=== PATIENT | male | born 1985 | race Caucasian/White ===

== ENCOUNTER 2017-06-07 17:58 | Emergency (ER) | payer OTHER ==
[2017-06-07] MEDS ORDERED: Sodium Chloride 0.9% 1,000 ML IV ONE ×2 (18:10→20:25)
[2017-06-07 18:12] VITALS: O2SAT 100
[2017-06-07 18:19] LABS: BASO # 0.1 K/uL (0.0-0.2); BASO % 0.8 % (0.0-2.0); EOS % 0.1 % (0.0-4.0); MEAN CORPUSCULAR HEMOGLOBIN 28.8 pg (27.0-31.0); MEAN CORPUSCULAR HGB CONC 33.9 g/dL (33.0-37.0); MEAN PLATELET VOLUME 7.7 fL (7.2-11.7); MONO # 0.7 K/uL (0.0-0.8); MONO % 6.3 % (0.0-10.0); NRBC % 0.1 % (0.0-2.0); RED CELL DISTRIBUTION WIDTH 13.7 % (11.5-14.5); WHITE BLOOD COUNT 11.7 K/uL (4.8-10.8)
[2017-06-07 18:29] LABS: CHLORIDE 94 mmol/L (98-107); SODIUM 140 mmol/L (132-148)
[2017-06-07 18:30] LABS: POTASSIUM 3.2 mmol/L (3.6-5.2)
[2017-06-07 18:31] LABS: GFR AFRICAN-AMERICAN > 60
[2017-06-07 18:32] LABS: ALB/GLOB RATIO 1.2 (1.0-2.1); ALKALINE PHOSPHATASE 94 U/L (38-126); ALT/SGPT 62 U/L (21-72); AST/SGOT 55 U/L (17-59); BILIRUBIN,TOTAL 1.1 mg/dL (0.2-1.3); BLOOD UREA NITROGEN 6 mg/dL (9-20); CALCIUM 8.9 mg/dl (8.6-10.4); CARBON DIOXIDE 17 mmol/L (22-30); GLUCOSE,RANDOM 109 mg/dL (75-110); TOTAL PROTEIN 8.6 g/dL (6.3-8.3)
[2017-06-07 18:33] LABS: ALCOHOL SERUM 172 mg/dl (0-10)
--- NOTE | 2017-06-07 18:50 | C.PDOC ---
History Of Present Illness 32 y/o male brought to the ED by EMS for alcohol intoxication. Patient states he has "been binge drinking since 2013." Notes he has been drinking excessively for the last 5 days, drinking "100" alcoholic drinks. States he doesn't feel well, and feels dehydrated and anxious. Otherwise, denies any SI/HI, chest pain , palpitations, shortness of breath, or any other physical complaints at this time. Time Seen by Provider: 06/07/17 18:10 Chief Complaint (Nursing): Palpitations History Per: Patient History/Exam Limitations: no limitations Onset/Duration Of Symptoms: Days, Gradual Current Symptoms Are (Timing): Still Present Suicide/Self Injury Attempted (Context): None Modifying Factor(s): Alcohol Severity: None Pain Scale Rating Of: 0 Associated Symptoms: Anxiety. denies: Suicidal Thoughts, Suicidal Plan Involuntary Hold By: None Recent travel outside of the [place]: No Additional History Per: Patient Past Medical History Reviewed: Historical Data, Nursing Documentation, Vital Signs Vital Signs: Last Vital Signs Temp 98.7 F 06/07/17 18:04 Pulse 121 H 06/07/17 18:10 Resp 20 06/07/17 18:04 BP 136/85 06/07/17 18:10 Pulse Ox 100 06/07/17 18:55 - Medical History PMH: Anxiety, Cardia Arrhythmia, Depression Family History: States: Unknown Family Hx - Social History Hx Alcohol Use: Yes Hx Substance Use: No - Immunization History Hx Influenza Vaccination: No Review Of Systems Except As Marked, All Systems Reviewed And Found Negative. Constitutional: Negative for: Fever, Chills Cardiovascular: Negative for: Chest Pain, Palpitations, Edema, Light Headedness Respiratory: Negative for: Shortness of Breath Gastrointestinal: Negative for: Nausea, Vomiting, Abdominal Pain Skin: Negative for: Rash, Bruising Neurological: Negative for: Weakness, Numbness, Headache, Dizziness Psych: Positive for: Anxiety. Negative for: Suicidal ideation Physical Exam - Physical Exam Appears: Non-toxic, No Acute Distress, Agitated Skin: Normal Color, Warm, Dry Head: Atraumatic, Normacephalic Eye(s): bilateral: Normal Inspection Oral Mucosa: Moist Neck: Normal ROM, Supple Chest: Symmetrical Cardiovascular: Rhythm Regular, No Murmur Respiratory: Normal Breath Sounds, No Rales, No Rhonchi, No Wheezing Gastrointestinal/Abdominal: Soft, No Tenderness Extremity: Bilateral: Atraumatic, Normal ROM Neurological/Psych: Oriented x3, Normal Speech, Other (anxious, restless ) ED Course And Treatment - Laboratory Results Result Diagrams: 06/07/17 18:16 06/07/17 18:16 Lab Interpretation: No Acute Changes ECG: Interpreted By Me, Viewed By Me ECG Rhythm: Sinus Tachycardia ECG Interpretation: No Acute Changes Rate From EC (bpm) O2 Sat by Pulse Oximetry: 100 (RA) Pulse Ox Interpretation: Normal Progress Note: Blood work, urinalysis, EKG ordered and reviewed. Patient was treated with Ativan and IV fluids. On re-eval, pt is resting comfortably, no acute distress. Reports feeling better. Reevaluation Time: 22:19 Reassessment Condition: Improved Disposition - Disposition Disposition: HOME/ ROUTINE Disposition Time: 22:19 Condition: IMPROVED Instructions: Abuse of Alcohol (ED), Anxiety (ED) Forms: [facility] (H[place]uran) - Clinical Impression Clinical Impression: Alcohol abuse, Anxiety, Sinus tachycardia - Scribe Statement The provider has reviewed the documentation as recorded by the Scribjunie Williamson All medical record entries made by the Scribe were at my direction and personally dictated by me. I have reviewed the chart and agree that the record accurately reflects my personal performance of the history, physical exam, medical decision making, and the department course for this patient. I have also personally directed, reviewed, and agree with the discharge instructions and disposition.
[2017-06-07] MEDS ORDERED: Sodium Chloride 0.9% 1,000 ML ONE ×2 (19:15→20:24)
[2017-06-07 23:11] VITALS: BP 130/80; PULSE 100; RESP 16; TEMP 98
--- NOTE | 2017-06-08 11:00 | CARD ---
APPROVED REPORT EKG Measurement Heart [id number] <Conclusion> Sinus tachycardia Nonspecific ST abnormality Abnormal ECG
== END 2017-06-07 23:10 | disposition home or self-care (01) ==
LOC: C.ER 17:58
DX: F10.10 Alcohol abuse, uncomplicated (principal); Y90.6 Blood alcohol level of 120-199 mg/100 ml; F41.9 Anxiety disorder, unspecified; R00.0 Tachycardia, unspecified
CPT/HCPCS: 80053; 80320; 85025; 93005; 96374; 99284; J2060; J7040